=== PATIENT | female | born 1980 | race Caucasian/White ===

== ENCOUNTER → 2018-03-01 | Outpatient (CLI) | payer OTHER ==
--- NOTE | 2018-03-01 11:41 | MM ---
Reason for exam: screening (asymptomatic). Baseline mammogram. History: Family history of breast cancer in paternal grandmother. Took hormonal contraceptives beginning at age 17. Physical Findings: Nurse did not find any significant physical abnormalities on exam. MG Screening Mammo w CAD Bilateral CC and MLO view(s) were taken. The breast tissue is heterogeneously dense. This may lower the sensitivity of mammography. Finding: There are typically benign round, diffuse/scattered calcifications in both breasts. Indeterminate calcifications in the left breast. These results were verbally communicated with the patient and result sheet given to the patient on 03/01/18. ASSESSMENT: Incomplete: need additional imaging evaluation, BI-RAD 0 RECOMMENDATION: Special view mammogram of the left breast. [facility] will attempt to contact patient to return for supplemental views.
--- NOTE | 2018-03-01 11:43 | MM ---
Reason for exam: additional evaluation requested from abnormal screening. History: Family history of breast cancer in paternal grandmother. Took hormonal contraceptives beginning at age 17. Physical Findings: Breast exam preformed at baseline screening. MG Work Up Mamm w CAD LT CC with magnification, LM with magnification, and LM view(s) were taken of the left breast. Finding: There are typically benign diffuse/scattered calcifications in the left breast, some layering. These results were verbally communicated with the patient and result sheet given to the patient on 03/01/18. ASSESSMENT: Probably benign, BI-RAD 3 RECOMMENDATION: Follow-up diagnostic mammogram of the left breast in 6 months.
== END | disposition home or self-care (01) ==
LOC: RADMAMWWP 09:35
DX: Z12.31 Encounter for screening mammogram for malignant neoplasm of breast (principal); R92.8 Other abnormal and inconclusive findings on diagnostic imaging of breast
CPT/HCPCS: 77065; 77067

== ENCOUNTER → 2018-10-04 | Outpatient (CLI) | payer OTHER ==
--- NOTE | 2018-10-04 09:58 | MM ---
Reason for exam: follow-up at short interval from prior study. Last mammogram was performed 7 months ago. History: Family history of breast cancer in paternal grandmother. Took hormonal contraceptives beginning at age 17. Physical Findings: Nurse did not find any significant physical abnormalities on exam. MG Diagnostic Mammo LT w CAD CC, MLO, ML, and spot compression CC view(s) were taken of the left breast. Prior study comparison: March 01, 2018, left breast MG work up mamm w CAD LT. March 01, 2018, bilateral MG screening mammo w CAD. The breast tissue is heterogeneously dense. This may lower the sensitivity of mammography. Diffuse calcifications redemonstrated on the left many of which layer on the lateral compatible with benign milk of calcium. Nodularity medial anteriorly disperses on spot view. No significant new findings when compared with previous films. These results were verbally communicated with the patient and result sheet given to the patient on 10/04/18. ASSESSMENT: Benign, BI-RAD 2 RECOMMENDATION: Routine screening mammogram of both breasts at age 41. (or sooner if clinically indicated) Manage on a clinical basis with regard to left breast white nipple discharge. Suspicious discharge that warrants further evaluation would be bloody or clear spontaneous discharge what localizes to a single pore on the nipple.
== END | disposition home or self-care (01) ==
LOC: RADMAMWWP 08:44
PROVIDERS: ATTEND Physician Assistant
DX: N63.0 Unspecified lump in unspecified breast (principal)
CPT/HCPCS: 77065

== ENCOUNTER 2020-05-24 08:53 | Day surgery (SDC) | payer OTHER ==
[2020-05-23 08:14] VITALS: BMI 28.8
[~2020-05-24 08:53] MED LIST: LACTATED RINGERS 1,000 ML IV SCH; LIDOCAINE 1% (10MG/ML) FOR IV START INTRADERMA PRN
[2020-05-24 09:30] VITALS: TEMP 97
[2020-05-24] MEDS ORDERED: PROPOFOL 10 MG/ML 20 ML VIAL IV ONE (09:54)
[2020-05-24] MEDS ORDERED: LIDOCAINE 1% INJ 10MG/ML (20 ML MDV) ONE (09:54)
--- NOTE | 2020-05-24 10:15 | P.PCN ---
Date of Procedure: 05/24/20 Description of Procedure: BRIEF HISTORY: Patient is a 40-year-old female presenting for outpatient evaluation of dysphagia. She reports difficulty swallowing. She has been started on acid [employer] but is not sure of the medication, she reports that symptoms are improved with taking the medication twice daily. PROCEDURE PERFORMED: Esophagogastroduodenoscopy with biopsy. PREOPERATIVE DIAGNOSIS: Dysphagia. ESTIMATED BLOOD LOSS: Minimal. IV sedation per anesthesia. PROCEDURE: After informed consent was obtained, the patient was brought into the endoscopy unit. IV sedation was administered by Anesthesia under continuous monitoring. Initially the Olympus GIF-190 video endoscope was inserted into the mouth. Esophagus intubated without any difficulty. It was gradually advanced into the stomach and duodenum and carefully examined. The bulb and the second part of the duodenum appeared normal, with biopsies taken to rule out. The scope at this time was withdrawn to the stomach, adequately insufflated with air, and upon careful examination, mucosa of the antrum, body, cardia and the fundus appeared normal, except for some mild punctate erythema in the antrum and body suggestive of mild gastritis biopsy. The scope was then withdrawn into the esophagus. The GE junction was located at 36 cm from the incisors and biopsied. The esophagus appeared normal, with esophageal biopsies taken. There were no erosions or ulcerations seen and the patient tolerated the procedure well. IMPRESSION: 1. Mild Gastritis. 2. Biopsies of the duodenum, antrum body, GE junction and mid esophagus. RECOMMENDATIONS: The findings of this examination were discussed with the patient . Okay to resume diet. Okay to resume medications. Await pathology from biopsies. Continue twice daily acid [employer].
[2020-05-24 10:32] VITALS: BP 99/64; PULSE 58; RESP 16
== END 2020-05-24 11:32 | disposition home or self-care (01) ==
LOC: ORWHC2ENDO 08:53
PROVIDERS: ATTEND Internal Medicine
DX: K29.50 Unspecified chronic gastritis without bleeding (principal); K21.00 Gastro-esophageal reflux disease with esophagitis, without bleeding; Z88.8 Allergy status to other drugs, medicaments and biological substances; Z87.891 Personal history of nicotine dependence; Z91.013 Allergy to seafood; Z98.51 Tubal ligation status; Z90.49 Acquired absence of other specified parts of digestive tract
CPT/HCPCS: 81025; 88305; 43239; J2001; J2704

== ENCOUNTER → 2021-01-29 | Outpatient (CLI) | payer OTHER ==
--- NOTE | 2021-01-29 10:14 | MM ---
Reason for exam: screening (asymptomatic). Last mammogram was performed 2 years and 4 months ago. History: Family history of breast cancer in paternal grandmother. Took hormonal contraceptives beginning at age 17. Physical Findings: A clinical breast exam by your physician is recommended on an annual basis and results should be correlated with mammographic findings. MG Screening Mammo w CAD Bilateral CC and MLO view(s) were taken. Prior study comparison: October 04, 2018, left breast MG diagnostic mammo LT w CAD. March 01, 2018, left breast MG work up mamm w CAD LT. The breast tissue is heterogeneously dense. This may lower the sensitivity of mammography. Stable scattered calcifications. No significant changes when compared with prior studies. ASSESSMENT: Benign, BI-RAD 2 RECOMMENDATION: Routine screening mammogram of both breasts in 1 year.
== END | disposition home or self-care (01) ==
LOC: RADMAMWWP 06:56
DX: Z12.31 Encounter for screening mammogram for malignant neoplasm of breast (principal); Z80.3 Family history of malignant neoplasm of breast
CPT/HCPCS: 77067

== ENCOUNTER → 2022-03-07 | Outpatient (CLI) | payer OTHER ==
--- NOTE | 2022-03-10 09:25 | MM ---
Reason for Exam: Screening (asymptomatic). Last mammogram was performed 1 year(s) and 1 month(s) ago. Patient History: Menarche at age 13. First Full-Term at age 24. Patient has history of breast feeding. Hormonal Contraceptives, from age 17 until age 24. Paternal grandmother had breast cancer, age 57. Last menstrual period: 02/19/2022 Risk Values: Diamante 5 year model risk: 0.5%. NCI Lifetime model risk: 9.0%. Prior Study Comparison: 03/01/2018 Left Diagnostic Mammogram, [facility]. 10/04/2018 Left Diagnostic Mammogram, [facility]. 01/29/2021 Bilateral Screening Mammogram, [facility]. Tissue Density: The breast tissue is heterogeneously dense. This may lower the sensitivity of mammography. Findings: Analyzed By CAD. Stable small round mass in the left breast towards the axilla. Stable occasional scattered tiny benign-appearing round calcification bilaterally. There is no suspicious group of microcalcifications or new suspicious mass in either breast. Overall Assessment: Benign, BI-RAD 2 Management: Screening Mammogram of both breasts in 1 year. Some advise bilateral breast ultrasound surveillance in patient with background dense tissue. A clinical breast exam by your physician is recommended on an annual basis and results should be correlated with mammographic findings. Electronically signed and approved by: Juancho Abreu M.D.
== END | disposition home or self-care (01) ==
LOC: RADMAMWWP 16:21
PROVIDERS: ATTEND Family Medicine
DX: Z12.31 Encounter for screening mammogram for malignant neoplasm of breast (principal); Z80.3 Family history of malignant neoplasm of breast
CPT/HCPCS: 77067

== ENCOUNTER → 2024-01-21 | Outpatient (CLI) | payer OTHER ==
--- NOTE | 2024-02-11 20:05 | MM ---
Reason for Exam: Screening (asymptomatic). Last mammogram was performed 1 year(s) and 11 month(s) ago. Patient History: Menarche at age 13. First Full-Term at age 24. Patient has history of breast feeding. Hormonal Contraceptives, from age 17 until age 24. Paternal grandmother had breast cancer, age 57. Risk Values: Diamante 5 year model risk: 0.6%. NCI Lifetime model risk: 8.9%. Prior Study Comparison: 10/04/2018 Left Diagnostic Mammogram, [facility]. 01/29/2021 Bilateral Screening Mammogram, [facility]. 03/07/2022 Bilateral MG screening mammo w CAD, [facility]. Tissue Density: The breasts are heterogeneously dense, which may obscure small masses. Findings: Analyzed By CAD. Diffuse bilateral punctate calcifications. Areas of bilateral asymmetric densities remain unchanged. Chronic nodularity superior posterior left breast. There is no suspicious group of microcalcifications or new suspicious mass in either breast. Overall Assessment: Benign, BI-RAD 2 Management: Screening Mammogram of both breasts in 1 year. . Patient should continue monthly self-breast exams. A clinical breast exam by your physician is recommended on an annual basis. This exam should not preclude additional follow-up of suspicious palpable abnormalities. Note on Diamante scores and lifetime risk: 1. A Diamante score greater than 3% is considered moderate risk. If this is the case, consider specialist referral to assess eligibility for a risk reducing agent. 2. If overall lifetime risk for the development of breast cancer is 20% or higher, the patient may qualify for future screening with alternating mammogram and breast MRI. Electronically signed and approved by: Antonio Márquez M.D. Radiologist
== END | disposition home or self-care (01) ==
LOC: RADMAMWWP 12:00
PROVIDERS: ATTEND Family Medicine
DX: Z12.31 Encounter for screening mammogram for malignant neoplasm of breast (principal); R92.333 Mammographic heterogeneous density, bilateral breasts; Z80.3 Family history of malignant neoplasm of breast
CPT/HCPCS: 77067